=== PATIENT | female | born 1945 | race Caucasian/White ===

== ENCOUNTER 2016-05-18 05:30 | Inpatient (IN) | payer MEDICARE ==
[~2016-05-18] VITALS: Ht 170.2 cm; Wt 93.0 kg
--- NOTE | 2016-05-22 09:28 | OR ---
ADMIT: 05/18/2016 RM/LOC: 504 [facility] MR#: [id number] [address] [address] [facility] [address] [place] [address] Operative/Delivery Room Report SEX: F AGE: 71 : 1945 SURGERY DATE: 05/18/2016 SURGEON: Owen Chan MD PREOPERATIVE DIAGNOSIS: Right hip osteoarthritis. POSTOPERATIVE DIAGNOSIS: Right hip osteoarthritis. PROCEDURE PERFORMED: Right total hip arthroplasty. IMPLANTS: DePuy 56 three-hole Gription locking cup with neutral liner, Trilock 4 stem with a 1.5 head, 36 size. BLOOD LOSS: 100. COMPLICATIONS: None. INDICATION: Sage is a 71-year-old female, she has got right hip arthritis. We have been treating her conservatively. We did a couple of different intra-articular hip injections. She got fantastic relief from those but fairly short lived unfortunately. Doing that therapy, anti- inflammatories, attempted weight loss did not significantly improve her pain for a long period of time. After failing that conservative management, we elected to proceed with total hip arthroplasty and now she is here for that today. DESCRIPTION OF PROCEDURE: The patient was identified in the preoperative holding area. Informed consent was confirmed, site was marked. Brought to the OR, anesthesia was induced. We then positioned her in the lateral decubitus position with all bony prominences well padded with the right hip up, prepped and draped in the usual sterile fashion. Time-out was performed. Preop antibiotics were confirmed. We began by making an incision directly over the tip of the trochanter through skin, subcutaneous tissue, obtained hemostasis, got down to the IT band. This was incised and then put a Charnley in. Did a small bursectomy. Exposed the vastus and the abductors and then took down the abductors and the vastus, the anterior third, in a continuous peel with the minimus and the capsule. Once this was done, peeled this over, came down and cleaned the calcar to release it enough to be able to get the head dislocated. Once it was dislocated presented the femoral neck and made a cut about a cm proximal to the lesser trochanter and then removed the head. We then brought the foot back up on the bed and exposed the acetabulum putting a Hohmann anterior one inferior exposing the acetabulum and removed the labrum and soft tissues that were within there. Cleaned out the soft tissues from within the acetabulum and then began reaming starting with the 46, sequentially coming up to a 56. With a 56 was able to get some good concentric reaming with good bleeding bone around and was pretty happy with that. We then irrigated copiously with normal saline and then placed a three hole Gription lock in place in a pretty nice position and then placed one screw, put a 35 screw in one of the cup holes there. Then placed our liner in ADMIT: 05/18/2016 RM/LOC: 504 [facility] MR#: [id number] [address] [address] [facility] [address] [place] [address] Operative/Delivery Room Report SEX: F AGE: 71 : 1945 place with the lap sponge over that and then presented the femur back up again and then prepared that using helene cutter and then sequential reaming up to a 4. This had a really nice fit with good toggle. We had it in good version clinically on the table there and that fit real nice. Went ahead and put a trial with a standard head with a 1.5, reduced that on the table and seemed to very very nicely give her equal leg lengths. No impingement posteriorly or anteriorly and no subluxation with flexion and adduction, so seemed to be tensioned really nice and reproducing her hip very nicely. We then brought this out, removed those trial components. We irrigated again and then placed the final Tri-Lock size 4 with the final liner in place and then irrigated once more. Then closed with a 5 Tycron with a pursestring for the capsule minimus and medius, then one Vicryl for the vastus repair, one Vicryl for the IT band, 0 Vicryl for the deep subcu, 2-0 for the subcu and then Monocryl for the skin with perineal dressing. We did inject also 60 mL of 0.25% Marcaine with epinephrine in the capsule, the abductors and the vastus before beginning closure. Once this is done, she was extubated, brought to the postoperative care unit in good condition. No complications. Postoperatively, she will have an abduction pillow for 48 hours while in bed and then will get her up with PT with a restriction of no active abduction for six weeks. Owen Chan MD/ yaritzag JOB #: [id number] CC: Owen Chan, Attending Physician Catrachita Merritt, Family Physician
[2016-05-22] MEDS ORDERED: LIPITOR DPS10 MG PO (11:39)
[2016-05-22] MEDS ORDERED: MYRBETRIQ25 MG PO (11:39)
[2016-05-22] MEDS ORDERED: OMEGA-3 DPS1000 MG PO (11:40)
[2016-05-22] MEDS ORDERED: SYSTANE BALANCE10 ML OU (11:40)
[2016-05-22] MEDS ORDERED: CALTRATE-600 W600 MG PO (11:40)
[2016-05-22] MEDS ORDERED: VITAMIN C1000 MG PO (11:40)
[2016-05-22] MEDS ORDERED: TYLENOL DPS325 MG PO (11:41)
[2016-05-22] MEDS ORDERED: GLUCOSAMINE/CHO1 TAB PO (11:41)
[2016-05-22] MEDS ORDERED: ASA325 MG PO (11:41)
[2016-05-22] MEDS ORDERED: MIRALAX PACKET17 GM PO (11:41)
[2016-05-22] MEDS ORDERED: SENOKOT S1 TAB PO (11:41)
[2016-05-22] MEDS ORDERED: PROTONIX40 MG PO (11:41)
[2016-05-22] MEDS ORDERED: OXY IR DPS5 MG PO (11:42)
[2016-05-22] MEDS ORDERED: ULTRAM DPS50 MG PO (11:42)
[2016-05-22] MEDS ORDERED: NORCO 5-325 TA1 EACH PO (11:42)
--- NOTE | 2016-05-29 07:29 | DS ---
ADMIT: 05/18/2016 RM/LOC: 504 [facility] MR#: [id number] [address] [address] [facility] [address] [place] [address] General Discharge Summary SEX: F AGE: 71 : 1945 ADMISSION DATE: 05/18/2016 DISCHARGE DATE: 05/20/2016 REASON FOR ADMISSION: Elective right total hip arthroplasty after failing conservative treatment. PREOPERATIVE DIAGNOSIS: Right hip osteoarthritis. POSTOPERATIVE DIAGNOSIS: Right hip osteoarthritis. PROCEDURE PERFORMED: Right total hip arthroplasty. SURGEON: Dr. Owen Chan. CATTLE ALLEY WORKER: Cesar Rodriguez PA-C ESTIMATED BLOOD LOSS: 100 mL. COMPLICATIONS: None. ANESTHESIA: General. ACTIVE MEDICAL PROBLEMS: 1. Chronic urinary incontinence. 2. Hypercholesterolemia. 3. Osteoarthritis. HOSPITAL COURSE: The patient was admitted on 05/18/2016 for a right total hip arthroplasty, performed successfully by Dr. Owen Chan, without any complications. The patient tolerated the procedure well. Postoperatively, she did well with pain control with use of intraoperative analgesics as well as postoperative analgesics. On postoperative day #1, she did suffer from some nausea as well as a feeling of "ear plugged." She was put on Vistaril 50 mg p.o. every 6 hours as needed for nausea, and was also recommended to have a home ear lavage solution. As expected, she did suffer from some mild acute blood loss anemia. Her hemoglobin dropped to 9.5 on 05/20/2016, but she remained hemodynamically stable and did not require blood transfusion. By postoperative day #2, she was safe and participated well with physical therapy. She was stable and ready for discharge home with plans for outpatient physical therapy. DISCHARGE MEDICATIONS: 1. Myrbetriq 50 mg at bedtime. 2. Atorvastatin 10 mg at bedtime. 3. Systane Ultra one drop at bedtime both eyes. 4. Vitamin C 1000 mg in the evening. 5. Fish oil 1000 mg in the evening. 6. Calcium 600 mg plus D3 of 400 units in the evening. 7. Glucosamine chondroitin two tablets 1500/1200 mg in the evening. ADMIT: 05/18/2016 RM/LOC: 504 [facility] MR#: [id number] [address] [address] [facility] [address] [place] [address] General Discharge Summary SEX: F AGE: 71 : 1945 8. Aspirin 325 mg at bedtime for six weeks. 9. MiraLax 17 g every day. 10.Protonix 40 mg at bedtime for six weeks. 11.Senokot two tablets at bedtime. 12.Tylenol 325 mg 1 to 2 tablets every 6 hours as needed pain. 13.Ultram 50 mg 1 to 2 tablets every 6 hours as needed for pain. 14.Plano 5/325 mg every 6 hours as needed for pain. 15.Oxycodone 5 mg one tablet every 6 hours as needed for breakthrough pain. DISCHARGE INSTRUCTIONS: The patient was discharged home with plans for outpatient physical therapy per total hip arthroplasty protocol. Follow up with Dr. Owen Chan, [facility] in three weeks for wound check and in six weeks with x-ray. Follow up with primary care as directed. ARNAUD Guy / Owen Chan MD / kaye JOB #: [id number] CC: Owen Chan MD, Attending Physician Catrachita Merritt, Family Physician
--- NOTE | 2016-05-30 08:25 | CO ---
ADMIT: 05/18/2016 RM/LOC: [facility] MR#: [id number] [address] [address] [facility] [address] [place] [address] Consultation Report SEX: F AGE: 71 : 1945 DATE OF CONSULTATION: 05/09/2016 ATTENDING PHYSICIAN: Owen Chan CONSULTING PHYSICIAN: Rajesh Freedman DO REASON FOR CONSULTATION: Preop right hip replacement. HISTORY OF PRESENT ILLNESS: This is a pleasant, 71-year-old female patient from [place], [place], who plans to undergo right hip replacement surgery for long-standing debilitating osteoarthritis by Dr. Chan on the 18 of May. PAST SURGICAL HISTORY: She has a past surgical history of childbirth x5 and hysterectomy. PAST MEDICAL HISTORY: Medically, she suffers from chronic urinary incontinence and hypercholesterolemia. MEDICATIONS: 1. Myrbetriq 50 mg at bedtime. 2. Systane eye drops. 3. Atorvastatin 10 mg at bedtime. 4. Aspirin 81 mg daily. 5. Vitamin C. 6. Fish oil. 7. Calcium. 8. Glucosamine. 9. Chondroitin. She is planning to hold her nonessential supplements in preparation for surgery. SOCIAL HISTORY: She is . Her recently had coronary bypass surgery. He accompanies her to the visit today. She does not smoke or use significant alcohol. FAMILY HISTORY: Noncontributory. REVIEW OF SYSTEMS: She can climb a flight of steps without significant dyspnea or chest pain. She has no nausea, vomiting, diarrhea, constipation, thinks she has a minor upper respiratory infection at this time, but no other evidence of infection. She does have chronic urinary incontinence. PHYSICAL EXAMINATION: GENERAL: She is pleasant, alert, and in no apparent distress. VITAL SIGNS: Her blood pressure is 148/78. She has a body mass index of 31.8. Weight is 203 pounds at 5 feet 7 inches tall. HEENT: Ear, nose, and throat is normal. ADMIT: 05/18/2016 RM/LOC: [facility] MR#: [id number] [id number] [facility] [address] [place] [id number] [facility] [address] [place] [address] Consultation Report SEX: F AGE: 71 : 1945 NECK: No JVD or bruit. HEART: Regular. LUNGS: Clear. ABDOMEN: Soft, nontender. EXTREMITIES: She has good pulses, dorsalis pedis and posterior tibial, without significant edema. LABORATORY DATA: Electrolytes essentially normal. Potassium 3.6, hemoglobin 11.4. EKG, sinus rhythm. IMPRESSION AND PLAN: Generally healthy 71-year-old female patient, who plans a hip replacement surgery. I think she is an appropriate candidate. We will stop nonessential [id number] supplements, hold her aspirin, and plan to resume aspirin 325 mg p.o. daily after surgery as DVT prophylaxis. I will follow and assist with her management and return her care to her primary provider in [place], [place] upon dismissal. Rajesh Freedman DO/ kaye JOB #: [id number] CC: Owen Chan, Attending Physician UNKNOWN, Family Physician
== END 2016-05-20 14:20 | disposition home or self-care (01) | DRG 470 ==
LOC: 5MS 05:30 → WOR 05:30 → 5MS 09:23
PROVIDERS: ADMIT Student in an Organized Health Care Education/Training Program
PROC: 0SR90JZ Replacement of Right Hip Joint with Synthetic Substitute, Open Approach (ICD-10-PCS; principal; 2016-05-18)
DX: M16.11 Unilateral primary osteoarthritis, right hip (principal); E66.9 Obesity, unspecified; D62 Acute posthemorrhagic anemia; E78.00 Pure hypercholesterolemia, unspecified; N39.3 Stress incontinence (female) (male); Z79.82 Long term (current) use of aspirin; Z68.31 Body mass index [BMI] 31.0-31.9, adult